=== PATIENT | male | born 1950 | race Hispanic/Latino ===

== ENCOUNTER 2017-08-31 13:49 | Inpatient (IN) | payer MEDICARE ==
[~2017-08-31] VITALS: Ht 182.9 cm; Wt 97.1 kg
[2017-08-31] MEDS ORDERED: SODIUM CHLORIDE 0.9% 1000ML 2,000 ML IV ONE (14:17)
[2017-08-31] MEDS ORDERED: CEFTRIAXONE SODIUM 2 GM VIAL ONE (14:18)
[2017-08-31] MEDS ORDERED: ACETAMINOPHEN EXTRA STRENGTH 500 MG TABLET ONE (14:18)
[2017-08-31 14:19] LABS: BASOPHILS % (AUTO) 0.2 % (0.0-5.0); EOSINOPHILS % (AUTO) 0.4 % (0.0-8.0); HEMATOCRIT 40.1 % (42-54); MEAN CORPUSCULAR HEMOGLOBIN 28.3 pg (27.0-33.0); MEAN CORPUSCULAR VOLUME 83.3 fL (79-99); MONOCYTES % (AUTO) 3.7 % (3.0-13.0); NEUTROPHILS % (AUTO) 93.7 % (40.0-77.0); PLATELET COUNT (AUTO) 193 K/uL (130-400); RED BLOOD CELL COUNT(AUTO) 4.82 MIL/uL (4.50-6.20); RED CELL DISTRIBUTION WIDTH 13.3 % (11.0-15.5); WHITE BLOOD COUNT (AUTO) 26.8 K/uL (4.8-10.8)
[2017-08-31 14:35] LABS: CARBON DIOXIDE 28 mmol/L (21-32); CHLORIDE 100 mmol/L (101-111); CREATININE 1.1 mg/dL (0.5-1.5); GLOMERULAR FILTR. RATE CALC 71 mL/min (>60); GLUCOSE,RANDOM 186 mg/dL (70-105); INR 1.16 (0.85-1.15); POTASSIUM 3.4 mmol/L (3.5-5.1); PROTHROMBIN TIME 12.1 SEC (9.6-11.6); SODIUM SERUM 139 mmol/L (136-145); UREA NITROGEN, BLOOD 20 mg/dL (7-18)
[2017-08-31] MEDS ORDERED: IPRATROPIUM/ALBUTEROL SULFATE 3 ML SOLUTION IH ONE (14:39)
[2017-08-31 14:45] LABS: APPEARANCE,URINE Clear (CLEAR); BILIRUBIN,URINE Small (NEGATIVE); COLOR,URINE Dark Yellow (YELLOW); GLUCOSE, URINE (UA) Negative (NEGATIVE); KETONES,URINE Negative (NEGATIVE); LEUKOCYTE ESTERASE ,URINE Small (NEGATIVE); NITRATE,URINE Negative (NEGATIVE); OCCULT BLOOD,URINE Negative (NEGATIVE); PROTEIN,URINE POS 1+ (NEGATIVE)
[2017-08-31 14:49] LABS: ALANINE AMINOTRANSFERASE 17 U/L (12-78); ASPARTATE AMINOTRANSFERASE 11 U/L (10-37); BILIRUBIN,TOTAL 2.6 mg/dL (0.2-1.0); CREATINE KINASE MB < 0.5 ng/mL (0.5-3.6); CREATINE KINASE, TOTAL 66 U/L (21-232); MYOGLOBIN 41 ng/mL (10-92); TOTAL PROTEIN, SERUM 7.5 g/dL (6.0-8.3); TROPONIN I < 0.04 ng/mL (0.00-0.06)
[2017-08-31 14:58] LABS: BACTERIA,URINE Rare /HPF (None Seen); RBC,URINE 0-1 /HPF (0-1)
[2017-08-31 14:59] LABS: SQUAMOUS EPITHELIAL CELL,UR Few /LPF (0-2)
[2017-08-31] MEDS ORDERED: OSELTAMIVIR PHOSPHATE 75 MG CAP ONE (15:15)
[2017-08-31] MEDS ORDERED: SODIUM CHLORIDE 0.9% 1000ML 1,000 ML IV ONE (15:23)
[2017-08-31] MEDS ORDERED: AZITHROMYCIN 250 MG TABLET PO ONE (15:24)
[2017-08-31 15:54] LABS: BAND NEUTROPHILS % (MANUAL) 19 % (0-2); LYMPHOCYTES % (MANUAL) 1 % (22-44); MONOCYTES % (MANUAL) 2 % (2-9); SEGMENTED NEUTROPHILS % 78 % (40-70)
[2017-08-31 15:56] LABS: MAN.DIFF COMMENT-IMPRESSION MANUAL DIFFERENTIAL
[2017-08-31 18:00] VITALS: BP 145/65
[2017-08-31 19:11] VITALS: BP 94/61
[2017-08-31] MEDS: OSELTAMIVIR PHOSPHATE 75 MG CAP PO SCH (20:29)
[2017-08-31 23:15] VITALS: BP 117/71
[2017-09-01] MEDS: IPRATROPIUM/ALBUTEROL SULFATE 3 ML SOLUTION IH SCH ×4 (00:59→18:18)
[2017-09-01] MEDS ORDERED: ONDANSETRON HCL 4 MG/2 ML VIAL IV PRN (01:45)
[2017-09-01] MEDS ORDERED: HYDRALAZINE HCL 20 MG/ML VIAL IV PRN (01:45)
[2017-09-01] MEDS ORDERED: LIDOCAINE HCL-MPF 1% 2ML VIAL IVP PRN (01:45)
[2017-09-01] MEDS ORDERED: POTASSIUM CHLORIDE 10% ELIXIR 20 MEQ/15 ML UDCUP PO PRN (01:45)
[2017-09-01] MEDS ORDERED: ACETAMINOPHEN 325 MG TAB PO PRN (01:45)
[2017-09-01] MEDS ORDERED: POTASSIUM CHLORIDE 20MEQ/100ML 100 ML IV PRN (01:45)
[2017-09-01 03:12] VITALS: BP 114/74
[2017-09-01 04:15] LABS: BASOPHILS % (AUTO) 0.4 % (0.0-5.0); HEMATOCRIT 34.1 % (42-54); LYMPHOCYTES % (AUTO) 4.3 % (21.0-51.0); MEAN CORPUSCULAR HEMOGLOBIN 29.5 pg (27.0-33.0); MEAN CORPUSCULAR HGB CONC 34.9 g/dL (32.0-36.0); MEAN CORPUSCULAR VOLUME 84.5 fL (79-99); NEUTROPHILS % (AUTO) 91.3 % (40.0-77.0); PLATELET COUNT (AUTO) 170 K/uL (130-400); RED BLOOD CELL COUNT(AUTO) 4.03 MIL/uL (4.50-6.20); RED CELL DISTRIBUTION WIDTH 13.5 % (11.0-15.5); WHITE BLOOD COUNT (AUTO) 21.2 K/uL (4.8-10.8)
[2017-09-01 04:21] LABS: POTASSIUM 3.3 mmol/L (3.5-5.1)
[2017-09-01] MEDS: POTASSIUM CHLORIDE 20 MEQ ERTAB PO PRN ×3 (06:44→10:41)
[2017-09-01 08:00] VITALS: BP 111/70
[2017-09-01] MEDS: OSELTAMIVIR PHOSPHATE 75 MG CAP PO SCH ×2 (08:15→20:20)
[2017-09-01] MEDS: FAMOTIDINE 20MG TAB 20 MG TAB PO SCH ×2 (08:15→20:20)
[2017-09-01 11:00] VITALS: BP 127/71
[2017-09-01] MEDS: CEFTRIAXONE SODIUM 1 GM IVP SCH (13:26)
[2017-09-01] MEDS ORDERED: PNEUMOCOCCAL VACCINE POLYVALENT 0.5 ML/VIAL [PPV] IM ONE (15:00)
[2017-09-01 16:00] VITALS: BP 132/87
[2017-09-01] MEDS: AZITHROMYCIN 500MG+NS 250ML 250 ML IV SCH (16:24)
[2017-09-01 20:00] VITALS: BP 117/70
[2017-09-02] VITALS: BP 124/86
[2017-09-02] MEDS: IPRATROPIUM/ALBUTEROL SULFATE 3 ML SOLUTION IH SCH ×4 (00:07→18:19)
[2017-09-02] MEDS ORDERED: GUAIFENESIN-DM 200/20 MG 10 ML ONE (03:44)
[2017-09-02 04:00] VITALS: BP 126/80
[2017-09-02 07:53] VITALS: BP 126/77
[2017-09-02] MEDS: FAMOTIDINE 20MG TAB 20 MG TAB PO SCH ×2 (09:27→20:48)
[2017-09-02] MEDS: OSELTAMIVIR PHOSPHATE 75 MG CAP PO SCH ×2 (09:27→20:49)
[2017-09-02 11:48] VITALS: BP 141/92
[2017-09-02] MEDS: CEFTRIAXONE SODIUM 1 GM IVP SCH (14:10)
[2017-09-02] MEDS: AZITHROMYCIN 500MG+NS 250ML 250 ML IV SCH (14:10)
[2017-09-02 16:00] VITALS: BP 125/78
[2017-09-02 20:00] VITALS: BP 142/80
[2017-09-02] MEDS: GUAIFENESIN-DM 200/20 MG 10 ML PO PRN (20:49)
[2017-09-03] VITALS: BP 130/84
[2017-09-03] MEDS: IPRATROPIUM/ALBUTEROL SULFATE 3 ML SOLUTION IH SCH ×5 (00:03→23:03)
[2017-09-03 04:00] VITALS: BP 132/90
[2017-09-03 08:00] VITALS: BP 133/87
[2017-09-03] MEDS: OSELTAMIVIR PHOSPHATE 75 MG CAP PO SCH ×2 (09:27→21:08)
[2017-09-03] MEDS: FAMOTIDINE 20MG TAB 20 MG TAB PO SCH ×2 (09:27→21:08)
[2017-09-03] MEDS ORDERED: PHARMACY COMMUNICATION MISC SCH (10:30)
[2017-09-03 11:00] VITALS: BP 142/97
[2017-09-03] MEDS ORDERED: COMPOUND IV REFRIGERATED 1 EACH IVSOLN MISC PRN (11:00)
[2017-09-03] MEDS: CEFTRIAXONE SODIUM 1 GM IVP SCH (13:51)
[2017-09-03] MEDS: VANCOMYCIN 1.25 GM in SODIUM CHLORIDE 0.9% 250 ML IV SCH ×2 (13:52→21:09)
[2017-09-03 16:00] VITALS: BP 133/95
[2017-09-03] MEDS: AZITHROMYCIN 500MG+NS 250ML 250 ML IV SCH (16:12)
[2017-09-03 20:00] VITALS: BP 130/74
[2017-09-03] MEDS ORDERED: VANCOMYCIN 0.75 GM in SODIUM CHLORIDE 0.9% 250 ML IV SCH (21:00)
[2017-09-03] MEDS: GUAIFENESIN-DM 200/20 MG 10 ML PO PRN (21:08)
[2017-09-04] VITALS: BP 130/80
[2017-09-04 04:00] VITALS: BP 123/80
[2017-09-04] MEDS: IPRATROPIUM/ALBUTEROL SULFATE 3 ML SOLUTION IH SCH (05:59)
[2017-09-04 07:30] LABS: BASOPHILS % (AUTO) 0.8 % (0.0-5.0); EOSINOPHILS % (AUTO) 0.3 % (0.0-8.0); HEMATOCRIT 41.3 % (42-54); LYMPHOCYTES % (AUTO) 14.7 % (21.0-51.0); MEAN CORPUSCULAR HEMOGLOBIN 28.1 pg (27.0-33.0); MEAN CORPUSCULAR HGB CONC 33.5 g/dL (32.0-36.0); MEAN CORPUSCULAR VOLUME 83.8 fL (79-99); NEUTROPHILS % (AUTO) 77.2 % (40.0-77.0); PLATELET COUNT (AUTO) 289 K/uL (130-400); RED BLOOD CELL COUNT(AUTO) 4.93 MIL/uL (4.50-6.20); RED CELL DISTRIBUTION WIDTH 13.6 % (11.0-15.5); WHITE BLOOD COUNT (AUTO) 11.5 K/uL (4.8-10.8)
[2017-09-04 08:00] VITALS: BP 125/80
[2017-09-04] MEDS ORDERED: BACID PO (08:19)
[2017-09-04] MEDS ORDERED: CLIN300C3 PO (08:19)
[2017-09-04 08:51] LABS: ALBUMIN 2.7 g/dL (3.5-5.0); BILIRUBIN,TOTAL 0.8 mg/dL (0.2-1.0); CREATININE 0.8 mg/dL (0.5-1.5); POTASSIUM 3.9 mmol/L (3.5-5.1); TOTAL PROTEIN, SERUM 7.5 g/dL (6.0-8.3)
[2017-09-04] MEDS: OSELTAMIVIR PHOSPHATE 75 MG CAP PO SCH (09:45)
[2017-09-04] MEDS: FAMOTIDINE 20MG TAB 20 MG TAB PO SCH (09:45)
== END 2017-09-04 10:07 | disposition home or self-care (01) | DRG 871 ==
LOC: EDH 13:49 → EDBD 13:49 → EDHIP 16:00 → 3BH 17:40
PROVIDERS: ADMIT Family Medicine; ATTEND Family Medicine
DX: A41.9 Sepsis, unspecified organism (principal); J18.9 Pneumonia, unspecified organism; K76.0 Fatty (change of) liver, not elsewhere classified; K80.20 Calculus of gallbladder without cholecystitis without obstruction; E87.6 Hypokalemia; Z28.21 Immunization not carried out because of patient refusal
CPT/HCPCS: 36415; 71045; 76705; 80048; 80053; 81001; 82550; 82553; 83605; 83874; 84484; 85007; 85025; 85610; 85730; 87040; 87088; 87186; 87804; 93005; 94640; 94664; A4218; J0456; J0696; J3370; J7030